=== PATIENT | female | born 1930 | race Caucasian/White ===

== ENCOUNTER 2017-09-17 16:33 | Emergency (ER) | payer MEDICARE, MEDICAID ==
[~2017-09-17] VITALS: Ht 171.4 cm; Wt 82.0 kg
[~2017-09-17 16:33] MED LIST: APIX2.5T PO; BENZ1LOZ30 MM; CARV3.122 PO; DEXT15LI PO; DILT120C62 PO; FENO145T38 PO; FURO-150 PO; GLUC1KIT2 SUBCUT; INSU100I25 SQ; MIRA25TA PO; NOVLG SQ; PANT40TA4 PO; POTA20TA10 PO; SYN0.088T PO; TEMA15CA PO
[2017-09-17 18:56] VITALS: BP 162/64
== END 2017-09-17 18:59 | disposition home or self-care (01) ==
LOC: ER 16:34
DX: S80.921A Unspecified superficial injury of right lower leg, initial encounter (principal); R60.0 Localized edema; I10 Essential (primary) hypertension; I25.10 Atherosclerotic heart disease of native coronary artery without angina pectoris; E11.9 Type 2 diabetes mellitus without complications; I48.91 Unspecified atrial fibrillation; Z86.73 Personal history of transient ischemic attack (TIA), and cerebral infarction without residual deficits; Z98.61 Coronary angioplasty status; Z90.710 Acquired absence of both cervix and uterus; Z98.890 Other specified postprocedural states; Z60.2 Problems related to living alone; Z88.2 Allergy status to sulfonamides; Z79.4 Long term (current) use of insulin; Z79.899 Other long term (current) drug therapy; X58.XXXA Exposure to other specified factors, initial encounter; Y93.89 Activity, other specified; Y92.89 Other specified places as the place of occurrence of the external cause; Y99.8 Other external cause status
CPT/HCPCS: 99284; A6449

== ENCOUNTER 2017-12-12 09:57 | Inpatient (IN) | payer MEDICARE, MEDICAID ==
[~2017-12-12] VITALS: Ht 160 cm; Wt 70.0 kg
[2017-12-12] MEDS ORDERED: normal saline 1000ML IV soln IVB ONE (10:50)
[2017-12-12] MEDS ORDERED: morphine 4 MG/ML inj SYRINge IV ONE (10:50)
[2017-12-12 11:20] LABS: BASOPHILS % (AUTO) 0.2 % (0-1); EOSINOPHILS # (AUTO) 0.1 X10'3 (0-0.9); EOSINOPHILS % (AUTO) 0.6 % (0-6); HEMATOCRIT 35.6 % (35.0-45.0); LYMPHOCYTES # (AUTO) 0.8 X10'3 (1.1-4.8); LYMPHOCYTES % (AUTO) 5.7 % (21-51); MEAN CORPUSCULAR HEMOGLOBIN 29.5 PG (27.0-31.0); MEAN CORPUSCULAR HGB CONC 33.7 % (33.0-36.5); MEAN CORPUSCULAR VOLUME 87.4 FL (78-98); MEAN PLATELET VOLUME 9.4 FL (7.4-10.4); MONOCYTES # (AUTO) 0.5 X10'3 (0-0.9); MONOCYTES % (AUTO) 3.6 % (2-12); NEUTROPHILS # (AUTO) 12.4 X10'3 (1.8-7.7); NEUTROPHILS % (AUTO) 89.9 % (42-75); PLATELET COUNT 244 X10'3 (140-440); RED BLOOD COUNT 4.07 X10'6 (4.20-5.60); WHITE BLOOD COUNT 13.8 X10'3 (4.5-11.0)
[2017-12-12 11:34] LABS: CLARITY,URINE CLOUDY (Clear); COLOR,URINE YELLOW (Yellow); GLUCOSE, URINE NEGATIVE (Neg); KETONES,URINE TRACE mg/dl (Neg); LEUKOCYTE ESTERASE ,URINE MODERATE (Neg); NITRITES, URINE NEGATIVE (Neg); OCCULT BLOOD,URINE LARGE (Neg); PROTEIN,URINE 30 mg/dl (Neg); UROBILINOGEN,URINE 0.2 E.U/dL (0.2-1.0)
[2017-12-12 11:35] LABS: UA COLLECTION TYPE STRAIGHT CATH
[2017-12-12 11:39] LABS: HYALINE CASTS 0-3 /LPF (NEGATIVE); MUCUS STRANDS FEW /LPF (Neg); SQUAMOUS EPITHELIAL CELL,UR FEW /LPF (FEW)
[2017-12-12 11:40] LABS: BACTERIA,URINE 1+ /HPF (Neg); WBC CLUMPS,URINE MANY /HPF (NEGATIVE); WBC,URINE 50-100 /HPF (0-4)
[2017-12-12 11:44] LABS: URINE AMPHETAMINE SCREEN NEGATIVE (Neg); URINE BARBITUATE SCREEN NEGATIVE (Neg); URINE BENZODIAZEPINES SCREEN NEGATIVE (Neg); URINE CANNABINOID SCREEN NEGATIVE (Neg); URINE COCAINE SCREEN NEGATIVE (Neg); URINE METHADONE SCREEN NEGATIVE (Neg); URINE OPIATE SCREEN NEGATIVE (Neg); URINE PHENCYCLIDINE SCREEN NEGATIVE (Neg)
[2017-12-12 11:57] LABS: ALANINE AMINOTRANSFERASE 19 U/L (12-78); ALBUMIN 3.1 G/DL (3.4-5.0); ALBUMIN/GLOBULIN RATIO 0.7 (1.1-1.5); ALKALINE PHOSPHATASE 40 IU/L (46-116); ANION GAP 9 (8-16); ASPARTATE AMINO TRANSFERASE 23 U/L (10-37); BILIRUBIN,TOTAL 1.1 MG/DL (0.1-1.0); BLOOD UREA NITROGEN 20 MG/DL (7-18); BUN/CREATININE RATIO 11.8 (6.6-38.0); CALCIUM 8.9 MG/DL (8.5-10.1); CHLORIDE 101 MMOL/L (99-107); CREATINE KINASE 274 U/L (26-192); CREATININE 1.69 MG/DL (0.40-0.90); GLUCOSE 166 MG/DL (70-104); POTASSIUM 2.5 MMOL/L (3.5-5.1); SODIUM 142 MMOL/L (135-145); TOTAL PROTEIN 7.6 G/DL (6.4-8.2); eGFR 29 ML/MIN
[2017-12-12] MEDS: potassium 10mEq/100ml NS w/LIDOcaine (10mg/bag) IV SCH ×2 (12:23→13:36)
[2017-12-12] MEDS ORDERED: PANT-47 PO (12:38)
[2017-12-12] MEDS ORDERED: FURO40TA4 PO (12:38)
[2017-12-12] MEDS ORDERED: LEVO100T PO (12:38)
[2017-12-12] MEDS ORDERED: APIX5TAB3 PO (12:38)
[2017-12-12] MEDS ORDERED: ATOR10TA PO (12:38)
[2017-12-12] MEDS ORDERED: OXYB5TAB11 PO (12:38)
[2017-12-12] MEDS ORDERED: POTA8CAP9 PO (12:38)
[2017-12-12] MEDS ORDERED: acetaminophen 650mg rectal suppository RC PRN (13:45)
[2017-12-12] MEDS ORDERED: acetaminophen 325mg tablet PO PRN (13:45)
[2017-12-12] MEDS ORDERED: metoclopramide 5 mg/ml inj IV PRN (13:45)
[2017-12-12] MEDS ORDERED: HYDROmorphone 1 mg/ml syringe IV PRN ×2 (13:45)
[2017-12-12] MEDS ORDERED: morphine 4 MG/ML inj SYRINge IV PRN ×2 (13:45)
[2017-12-12] MEDS ORDERED: magnesium hydroxide 30ml (MOM) UD suspension PO PRN (13:45)
[2017-12-12] MEDS ORDERED: potassium Cl 20 mEq SR tablet PO PRN ×2 (13:45)
[2017-12-12] MEDS ORDERED: potassium Cl 40MEQ/NS 500ml 500 ML IV PRN (13:45)
[2017-12-12] MEDS ORDERED: HYDROcodone/acetaminophen 5mg/325mg tablet PO PRN (13:45)
[2017-12-12] MEDS ORDERED: diphenhydrAMINE 50 mg/ml inj IV PRN (13:45)
[2017-12-12] MEDS ORDERED: bisacodyl 10mg suppository rectal RC PRN (13:45)
[2017-12-12] MEDS ORDERED: diphenhydrAMINE 25mg capsule PO PRN (13:45)
[2017-12-12] MEDS ORDERED: mag hydrox/Alum hydrox/simeth 30ml oral suspension PO PRN (13:45)
[2017-12-12] MEDS ORDERED: ondansetron/PF 4mg/2ml inj IV PRN (13:45)
[2017-12-12] MEDS ORDERED: dextrose ORAL solution 15 GM/59 ML bottle PO PRN ×2 (13:50)
[2017-12-12] MEDS ORDERED: MESSAGE TO PHARMACY PO ONE (13:50)
[2017-12-12] MEDS ORDERED: dextrose 50%-water 50ml dispensing syringe IV PRN ×2 (13:50)
[2017-12-12] MEDS ORDERED: glucagon, human recombinant 1mg kit SUBCUT PRN (13:50)
[2017-12-12] MEDS ORDERED: sodium polystyrene sulfonate 15gm/60ml oral suspension PO ONE (13:50)
[2017-12-12] MEDS ORDERED: insulin Lispro (HumaLOG) vial - multi-dose SQ SCH (13:50)
[2017-12-12 14:25] LABS: HEMOGLOBIN A1C 5.7 % (4.5-6.2)
[2017-12-12 14:33] LABS: MAGNESIUM 1.9 MG/DL (1.5-2.4); PHOSPHORUS 3.6 MG/DL (2.3-4.5)
[2017-12-12 14:39] LABS: INR 1.2 INR; PARTIAL THROMBOPLASTIN TIME 32 SECONDS (22-32); PROTHROMBIN TIME 12.7 SECONDS (9.0-12.0)
[2017-12-12 14:45] VITALS: BP 117/72
[2017-12-12] MEDS: normal saline 1000ml 1,000 ML IV SCH ×2 (15:12→23:49)
[2017-12-12 18:00] VITALS: BP 119/60
[2017-12-12 20:29] VITALS: BP 129/62
[2017-12-12] MEDS: oxybutynin 5mg tablet PO SCH (20:31)
[2017-12-12] MEDS: docusate sod 100mg capsule PO SCH (20:31)
[2017-12-12] MEDS: carVEDilol 3.125mg tablet PO SCH (20:31)
[2017-12-12] MEDS ORDERED: temazepam 15mg capsule PO PRN (21:00)
[2017-12-12 22:00] VITALS: BP 113/57
[2017-12-13] VITALS (20 sets, daily range): BP systolic 90–155; BP diastolic 50–81
[2017-12-13 00:01] LABS: POTASSIUM 2.8 MMOL/L (3.5-5.1)
[2017-12-13] MEDS: potassium Cl 40MEQ/NS 500ml 500 ML IV PRN ×2 (00:31→04:48)
[2017-12-13 07:21] LABS: BASOPHILS % (AUTO) 0.2 % (0-1); EOSINOPHILS % (AUTO) 0.2 % (0-6); HEMATOCRIT 31.1 % (35.0-45.0); HEMOGLOBIN 10.5 g/dl (12.0-16.0); LYMPHOCYTES # (AUTO) 0.9 X10'3 (1.1-4.8); LYMPHOCYTES % (AUTO) 7.8 % (21-51); MEAN CORPUSCULAR HEMOGLOBIN 29.4 PG (27.0-31.0); MEAN CORPUSCULAR HGB CONC 33.8 % (33.0-36.5); MEAN CORPUSCULAR VOLUME 87.1 FL (78-98); MEAN PLATELET VOLUME 9.8 FL (7.4-10.4); MONOCYTES # (AUTO) 0.5 X10'3 (0-0.9); MONOCYTES % (AUTO) 4.9 % (2-12); NEUTROPHILS # (AUTO) 9.7 X10'3 (1.8-7.7); NEUTROPHILS % (AUTO) 86.9 % (42-75); PLATELET COUNT 196 X10'3 (140-440); RED BLOOD COUNT 3.57 X10'6 (4.20-5.60); RED CELL DISTRIBUTION WIDTH 16.3 % (11.5-14.5); WHITE BLOOD COUNT 11.1 X10'3 (4.5-11.0)
[2017-12-13] MEDS: K and/or MAG REPLACEMENT MC SCH (08:00)
[2017-12-13] MEDS: atorvastatin 10mg tablet PO SCH (08:00)
[2017-12-13] MEDS ORDERED: mirabegron 25mg ER tablet PO SCH (08:00)
[2017-12-13] MEDS: fenofibrate 145mg tablet PO SCH (08:00)
[2017-12-13] MEDS ORDERED: non-formulary drug (Diltiazem HCl (Diltiazem 24Hr Cd) 1 CAP) PO SCH (08:00)
[2017-12-13] MEDS: CefTRIAXone/D5W-Rocephin 1gm 50 ML IV SCH (08:45)
[2017-12-13] MEDS: carVEDilol 3.125mg tablet PO SCH ×2 (08:46→20:29)
[2017-12-13] MEDS: docusate sod 100mg capsule PO SCH ×2 (08:46→20:29)
[2017-12-13] MEDS: oxybutynin 5mg tablet PO SCH ×2 (08:46→20:29)
[2017-12-13] MEDS: diltiazem CD 120mg capsule (once-daily) PO SCH (08:46)
[2017-12-13] MEDS: levoTHYROXINE 100mcg tablet PO SCH (08:47)
[2017-12-13] MEDS: pantoprazole 40mg Tablet.DR PO SCH (08:47)
[2017-12-13] MEDS: normal saline 1000ml 1,000 ML IV SCH ×2 (09:44→20:26)
[2017-12-13] MEDS ORDERED: sevoflurane 250ml liquid IH ONE (13:10)
[2017-12-13 13:13] LABS: ALANINE AMINOTRANSFERASE 20 U/L (12-78); ALBUMIN 2.6 G/DL (3.4-5.0); ALBUMIN/GLOBULIN RATIO 0.7 (1.1-1.5); ALKALINE PHOSPHATASE 35 IU/L (46-116); ANION GAP 9 (8-16); ASPARTATE AMINO TRANSFERASE 24 U/L (10-37); BILIRUBIN,TOTAL 1.2 MG/DL (0.1-1.0); BLOOD UREA NITROGEN 26 MG/DL (7-18); BUN/CREATININE RATIO 16.5 (6.6-38.0); CALCIUM 8.4 MG/DL (8.5-10.1); CHLORIDE 110 MMOL/L (99-107); CREATININE 1.58 MG/DL (0.40-0.90); GLUCOSE 133 MG/DL (70-104); SODIUM 145 MMOL/L (135-145); TOTAL CARBON DIOXIDE 26.2 MMOL/L (24-32); TOTAL PROTEIN 6.6 G/DL (6.4-8.2); eGFR 31 ML/MIN
[2017-12-13] MEDS ORDERED: ROPIVAcaine 0.5% (5mg/ml) 30ml vial ONE (13:37)
[2017-12-13] MEDS ORDERED: midazolam 2 mg/2 ml injection ONE (13:41)
[2017-12-13] MEDS ORDERED: etomidate 2mg/ml inj. ONE (13:41)
[2017-12-13] MEDS ORDERED: fentaNYL/PF 50MCG/1 ML 2ML syringe ONE (13:41)
[2017-12-13] MEDS ORDERED: ondansetron/PF 4mg/2ml inj ONE (13:44)
[2017-12-13] MEDS ORDERED: ringers solution, lacted 1,000 ML IV SCH (13:48)
[2017-12-13] MEDS ORDERED: hydrALAZINE 20mg/ml inj. IV PRN (13:50)
[2017-12-13] MEDS ORDERED: morphine 4 MG/ML inj SYRINge IV PRN ×2 (13:50)
[2017-12-13] MEDS ORDERED: ondansetron/PF 4mg/2ml inj IV PRN (13:50)
[2017-12-13] MEDS ORDERED: enalaprilat dihydrate 2.5mg/2ml vial IV PRN (13:50)
[2017-12-13] MEDS ORDERED: fentaNYL/PF 50MCG/1 ML 2ML syringe IV PRN ×2 (13:50)
[2017-12-13] MEDS ORDERED: ceFAZolin 1000mg inj ONE ×2 (14:20)
[2017-12-13] MEDS: lactobacillus rhamnosus 10,000 MMU CELLS/CAPSULE PO SCH (20:29)
[2017-12-14 02:00] VITALS: BP 122/75
[2017-12-14] MEDS: normal saline 1000ml 1,000 ML IV SCH ×2 (05:14→16:05)
[2017-12-14 06:00] VITALS: BP 122/65
[2017-12-14 07:26] LABS: BASOPHILS % (AUTO) 0.2 % (0-1); EOSINOPHILS # (AUTO) 0.1 X10'3 (0-0.9); EOSINOPHILS % (AUTO) 1.1 % (0-6); HEMATOCRIT 28.2 % (35.0-45.0); HEMOGLOBIN 9.3 g/dl (12.0-16.0); LYMPHOCYTES # (AUTO) 0.8 X10'3 (1.1-4.8); LYMPHOCYTES % (AUTO) 8.4 % (21-51); MEAN CORPUSCULAR HEMOGLOBIN 29.4 PG (27.0-31.0); MEAN CORPUSCULAR VOLUME 89.3 FL (78-98); MONOCYTES # (AUTO) 0.5 X10'3 (0-0.9); MONOCYTES % (AUTO) 5.4 % (2-12); NEUTROPHILS # (AUTO) 8.1 X10'3 (1.8-7.7); NEUTROPHILS % (AUTO) 84.9 % (42-75); PLATELET COUNT 167 X10'3 (140-440); RED BLOOD COUNT 3.15 X10'6 (4.20-5.60); RED CELL DISTRIBUTION WIDTH 16.4 % (11.5-14.5); WHITE BLOOD COUNT 9.5 X10'3 (4.5-11.0)
[2017-12-14] MEDS: levoTHYROXINE 100mcg tablet PO SCH (07:35)
[2017-12-14] MEDS: oxybutynin 5mg tablet PO SCH ×2 (07:35→19:56)
[2017-12-14] MEDS: atorvastatin 10mg tablet PO SCH (07:35)
[2017-12-14] MEDS: lactobacillus rhamnosus 10,000 MMU CELLS/CAPSULE PO SCH ×2 (07:35→19:56)
[2017-12-14] MEDS: carVEDilol 3.125mg tablet PO SCH ×2 (07:35→19:56)
[2017-12-14] MEDS: pantoprazole 40mg Tablet.DR PO SCH (07:35)
[2017-12-14] MEDS: fenofibrate 145mg tablet PO SCH (07:35)
[2017-12-14] MEDS: diltiazem CD 120mg capsule (once-daily) PO SCH (07:35)
[2017-12-14] MEDS: docusate sod 100mg capsule PO SCH ×2 (07:35→19:56)
[2017-12-14] MEDS: CefTRIAXone/D5W-Rocephin 1gm 50 ML IV SCH (07:35)
[2017-12-14] MEDS: K and/or MAG REPLACEMENT MC SCH (08:00)
[2017-12-14 08:24] LABS: ALANINE AMINOTRANSFERASE 16 U/L (12-78); ALBUMIN 2.2 G/DL (3.4-5.0); ALBUMIN/GLOBULIN RATIO 0.6 (1.1-1.5); ALKALINE PHOSPHATASE 27 IU/L (46-116); ANION GAP 10 (8-16); ASPARTATE AMINO TRANSFERASE 17 U/L (10-37); BILIRUBIN,TOTAL 0.7 MG/DL (0.1-1.0); BLOOD UREA NITROGEN 28 MG/DL (7-18); BUN/CREATININE RATIO 19.4 (6.6-38.0); CALCIUM 7.5 MG/DL (8.5-10.1); CHLORIDE 112 MMOL/L (99-107); CREATININE 1.44 MG/DL (0.40-0.90); GLUCOSE 161 MG/DL (70-104); POTASSIUM 3.8 MMOL/L (3.5-5.1); SODIUM 144 MMOL/L (135-145); TOTAL PROTEIN 5.8 G/DL (6.4-8.2); eGFR 35 ML/MIN
[2017-12-14 10:00] VITALS: BP 127/76
[2017-12-14] MEDS: HYDROcodone/acetaminophen 10/325mg tab PO PRN ×2 (12:36→22:24)
[2017-12-14 18:00] VITALS: BP 123/74
[2017-12-14] MEDS: apixaban 5mg tablet PO SCH (19:56)
[2017-12-14] MEDS: mupirocin 2% nasal ointment 1gm UD NS SCH (20:34)
[2017-12-14 22:00] VITALS: BP 119/59
[2017-12-15] MEDS: normal saline 1000ml 1,000 ML IV SCH ×2 (03:56→11:44)
[2017-12-15 06:00] VITALS: BP 134/67
[2017-12-15 07:01] LABS: BASOPHILS # (AUTO) 0.1 X10'3 (0-0.2); BASOPHILS % (AUTO) 0.5 % (0-1); EOSINOPHILS # (AUTO) 0.3 X10'3 (0-0.9); EOSINOPHILS % (AUTO) 2.2 % (0-6); HEMATOCRIT 31.8 % (35.0-45.0); HEMOGLOBIN 10.5 g/dl (12.0-16.0); LYMPHOCYTES % (AUTO) 15.9 % (21-51); MEAN CORPUSCULAR HEMOGLOBIN 29.4 PG (27.0-31.0); MEAN CORPUSCULAR HGB CONC 33.1 % (33.0-36.5); MEAN CORPUSCULAR VOLUME 88.6 FL (78-98); MEAN PLATELET VOLUME 9.9 FL (7.4-10.4); MONOCYTES # (AUTO) 0.6 X10'3 (0-0.9); MONOCYTES % (AUTO) 5.3 % (2-12); NEUTROPHILS # (AUTO) 9.3 X10'3 (1.8-7.7); NEUTROPHILS % (AUTO) 76.1 % (42-75); PLATELET COUNT 202 X10'3 (140-440); RED BLOOD COUNT 3.59 X10'6 (4.20-5.60); RED CELL DISTRIBUTION WIDTH 16.5 % (11.5-14.5); WHITE BLOOD COUNT 12.3 X10'3 (4.5-11.0)
[2017-12-15 07:46] LABS: ALANINE AMINOTRANSFERASE 16 U/L (12-78); ALBUMIN 2.3 G/DL (3.4-5.0); ALBUMIN/GLOBULIN RATIO 0.6 (1.1-1.5); ALKALINE PHOSPHATASE 32 IU/L (46-116); ANION GAP 8 (8-16); ASPARTATE AMINO TRANSFERASE 17 U/L (10-37); BILIRUBIN,TOTAL 0.5 MG/DL (0.1-1.0); BLOOD UREA NITROGEN 40 MG/DL (7-18); BUN/CREATININE RATIO 23.8 (6.6-38.0); CALCIUM 8.2 MG/DL (8.5-10.1); CHLORIDE 106 MMOL/L (99-107); CREATININE 1.68 MG/DL (0.40-0.90); GLUCOSE 104 MG/DL (70-104); POTASSIUM 4.6 MMOL/L (3.5-5.1); SODIUM 136 MMOL/L (135-145); TOTAL CARBON DIOXIDE 21.9 MMOL/L (24-32); TOTAL PROTEIN 6.2 G/DL (6.4-8.2); eGFR 29 ML/MIN
[2017-12-15] MEDS: K and/or MAG REPLACEMENT MC SCH (07:52)
[2017-12-15] MEDS: atorvastatin 10mg tablet PO SCH (07:54)
[2017-12-15] MEDS: apixaban 5mg tablet PO SCH (07:54)
[2017-12-15] MEDS: carVEDilol 3.125mg tablet PO SCH (07:54)
[2017-12-15] MEDS: diltiazem CD 120mg capsule (once-daily) PO SCH (07:54)
[2017-12-15] MEDS: docusate sod 100mg capsule PO SCH (07:54)
[2017-12-15] MEDS: oxybutynin 5mg tablet PO SCH (07:54)
[2017-12-15] MEDS: CefTRIAXone/D5W-Rocephin 1gm 50 ML IV SCH (07:54)
[2017-12-15] MEDS: lactobacillus rhamnosus 10,000 MMU CELLS/CAPSULE PO SCH (07:54)
[2017-12-15] MEDS: levoTHYROXINE 100mcg tablet PO SCH (07:55)
[2017-12-15] MEDS: fenofibrate 145mg tablet PO SCH (07:55)
[2017-12-15] MEDS: pantoprazole 40mg Tablet.DR PO SCH (07:55)
[2017-12-15] MEDS: mupirocin 2% nasal ointment 1gm UD NS SCH (07:55)
[2017-12-15 10:00] VITALS: BP 128/70
[2017-12-15] MEDS ORDERED: lactose-reduced food (Ensure Enlive) - 237ml bottle PO SCH (17:00)
== END 2017-12-15 17:15 | DRG 511 ==
LOC: ER 09:57 → ED HOLD 13:44 → EDBEDREQ 14:24 → ORTHO 4S 15:50
PROVIDERS: ADMIT Family Medicine; ATTEND Family Medicine
PROC: 0PSJ04Z Reposition Left Radius with Internal Fixation Device, Open Approach (ICD-10-PCS; principal; 2017-12-13 13:41)
DX: S52.572A Other intraarticular fracture of lower end of left radius, initial encounter for closed fracture (principal); N17.9 Acute kidney failure, unspecified; N39.0 Urinary tract infection, site not specified; I13.0 Hypertensive heart and chronic kidney disease with heart failure and stage 1 through stage 4 chronic kidney disease, or unspecified chronic kidney disease; I50.32 Chronic diastolic (congestive) heart failure; E11.22 Type 2 diabetes mellitus with diabetic chronic kidney disease; I48.91 Unspecified atrial fibrillation; L30.8 Other specified dermatitis; N18.9 Chronic kidney disease, unspecified; B96.20 Unspecified Escherichia coli [E. coli] as the cause of diseases classified elsewhere; E11.65 Type 2 diabetes mellitus with hyperglycemia; W01.0XXA Fall on same level from slipping, tripping and stumbling without subsequent striking against object, initial encounter; Y93.01 Activity, walking, marching and hiking; E86.0 Dehydration; E87.6 Hypokalemia; I25.10 Atherosclerotic heart disease of native coronary artery without angina pectoris; I25.2 Old myocardial infarction; Z90.710 Acquired absence of both cervix and uterus; Z88.2 Allergy status to sulfonamides; Z88.9 Allergy status to unspecified drugs, medicaments and biological substances; Z79.899 Other long term (current) drug therapy; Z86.73 Personal history of transient ischemic attack (TIA), and cerebral infarction without residual deficits; Y92.89 Other specified places as the place of occurrence of the external cause; Y99.8 Other external cause status
CPT/HCPCS: 36415; 70450; 71045; 73090; 73100; 73110; 76000; 80053; 80305; 81001; 82550; 82948; 83036; 83735; 83874; 83880; 84100; 84132; 84443; 84484; 85025; 85610; 85730; 87070; 87077; 87088; 87186; 93005; 96374; 96375; 97116; 97162; 97530; 99285; A4565; A6212; A6213; A6255; A6449; A7000; C1713; J0690; J0696; J2250; J2270; J2405; J2795; J3010; J3480; J3490; J7030; J7120